=== PATIENT | female | born 1985 | race Caucasian/White ===

== ENCOUNTER 2017-04-19 08:00 | Inpatient (IN) | payer OTHER ==
--- OUTSIDE RECORDS SUMMARY | 2017-04-29 07:05 | XMS | Clinical Summary ---
:1985 Author Organization [facility] Address [address] [place] [address] Phone Care Team Providers Name Role Phone [...]
[2017-04-29] MEDS ORDERED: Heparin 5,000 UNITS/ML VIAL ONE (08:20)
[2017-04-29] MEDS ORDERED: Midazolam HCl 2 mg/2 ml Vial ONE ×2 (09:03→09:10)
[2017-04-29] MEDS ORDERED: Fentanyl 100 MCG/2 ML VIAL ONE (09:10)
[2017-04-29] MEDS ORDERED: Bupivacaine HCl 0.5%/Epinephrine 1:200,000/PF 30 ml Vial ONE (09:19)
[2017-04-29] MEDS ORDERED: Ondansetron HCl/PF 4 MG/2 ML Vial ONE (09:55)
[2017-04-29] MEDS ORDERED: Glycopyrrolate 0.2 MG/ML 5 ML SYRINGE ONE (09:55)
[2017-04-29] MEDS ORDERED: Ketorolac Tromethamine 30 MG/ML VIAL ONE (09:55)
[2017-04-29] MEDS ORDERED: Lidocaine 2% PF 10 ML AMP (For Epidural Use) ONE (09:55)
[2017-04-29] MEDS ORDERED: Propofol 200 MG/20 ML VIAL ONE (09:55)
[2017-04-29] MEDS ORDERED: Ondansetron HCl/PF 4 MG/2 ML Vial IVP PRN ×2 (11:15→11:25)
[2017-04-29] MEDS ORDERED: Meperidine HCl/PF 25 MG/ML VIAL SLOW IVP PRN (11:15)
[2017-04-29] MEDS ORDERED: Promethazine HCl 25 MG/ML VIAL IM PRN ×3 (11:15→13:43)
[2017-04-29] MEDS ORDERED: Promethazine HCl 25 MG/ML VIAL SLOW IVP PRN (11:15)
[2017-04-29] MEDS ORDERED: Promethazine HCl 25 MG/ML VIAL ONE (11:24)
[2017-04-29] MEDS ORDERED: diphenhydrAMINE HCl 50 MG/ML 1 ML VIAL IM PRN (11:25)
[2017-04-29] MEDS ORDERED: diphenhydrAMINE HCl 25 MG CAP PO PRN (11:25)
[2017-04-29] MEDS ORDERED: Naloxone HCl 0.4 mg/ml Vial IV PRN (11:25)
[2017-04-29] MEDS ORDERED: Fentanyl 5000 MCG/250 ML CADD IVPB PRN (11:25)
[2017-04-29] MEDS ORDERED: Zolpidem Tartrate 5 MG TAB PO PRN (11:25)
[2017-04-29] MEDS ORDERED: diphenhydrAMINE HCl 50 MG/ML 1 ML VIAL IVP PRN ×2 (11:25→13:43)
[2017-04-29] MEDS ORDERED: Communication Order-Pharmacy FS SCH (11:30)
[2017-04-29] MEDS ORDERED: Hydrocodone-Acetamin 15 ML UDCUP PO PRN (13:43)
[2017-04-29] MEDS ORDERED: Dextrose 50% Abboject 50 ML SYRINGE SLOW IVP PRN (13:43)
[2017-04-29] MEDS ORDERED: Dextrose 5% in Water 1,000 ML IV PRN (13:43)
[2017-04-29] MEDS: D5 1/2 NS w/20 mEq KCL 1,000 ML IV SCH ×2 (15:40→22:48)
[2017-04-29 15:46] VITALS: BMI 56.8
[2017-04-29] MEDS: Acetaminophen 1,000 MG in Premix Bag 1 BAG IVPB SCH ×2 (16:45→20:03)
--- NOTE | 2017-04-29 19:05 | OP ---
DATE OF OPERATION: 04/29/2017 PREOPERATIVE DIAGNOSES: 1. Morbid obesity with BMI of 54. 2. Hypertension. 3. Cardiomyopathy. 4. History of pulmonary embolism. POSTOPERATIVE DIAGNOSES: 1. Morbid obesity with BMI of 54. 2. Hypertension. 3. Cardiomyopathy. 4. History of pulmonary embolism. PROCEDURE: Laparoscopic sleeve gastrectomy with Meridian staple line reinforcements and 38-Yoruba bougi e. SURGEON: Mac Lopez M.D. ANESTHESIA: General. ESTIMATED BLOOD LOSS: Minimal. COMPLICATIONS: None. SPECIMEN: Stomach. FINDINGS: Normal postoperative EGD. INDICATION: The patient is a 31-year-old female who presents for gastric sleeve. She has attended our preoperative seminar and has had a preoperative education and a psychologic evaluation. She giv es consent. She understands risks, benefits and alternative procedures for weight loss. TECHNIQUE: The patient was taken to the operating room and placed supine on the table. After gener al anesthetic was obtained, the arms and legs were double strapped to bariatric table. The abdomen was prepped and draped in a sterile fashion. Left subcostal 5-mm Optiview trocar was placed in the usual fashion and high-flow pneumoperitoneum was obtained. Left and right abdominal 12-mm ports as well as a right subcostal 5 mm ports were placed under direct visualization. A 5-mm incision was ma de at the xiphoid and Nathansen was used to raise the liver off the GE junction. Short gastrics wer e taken down from mid body of stomach to the left esmer of the diaphragm. Left esmer, angle of His an d posterior fundus was completely dissected. Short gastrics were taken down to a distance of 6 cm p roximal to the pylorus. OG tube was removed and the bougie was brought in and its tip left in the a ntrum of the stomach. Multiple loads of an Golovin stapling device were used to form the sleeve. T he first was fired at a distance of 6 cm proximal to the pylorus angled up towards the incisura. Ca re was taken to avoid being too close to the incisura. Multiple loads were then fired up and the st omach was completely transected at the angle of His. The stomach was removed from left abdominal in cision and this fascial defect was closed using GraNee needle 0 Vicryl tie. There was no bleeding o n the staple lines. EGD scope was used to pass into the esophagus, stomach to the level of the duod enum without obstruction. There was no stricture at the incisura. There was no air leakage through the staple line. The EGD scope was used to decompress the stomach, pulled and removed. The Koffi sen retractor was removed under direct visualization without bleeding. All wounds are irrigated and closed. All ports were removed under camera visualization without bleeding. Vicryl was used to cl ose the fascial defect from left abdominal incision. All incisions are irrigated and closed using 4 -0 Monocryl and Dermabond. The patient was en route to recovery in stable condition. All instrumen t counts, needle counts, and lap counts were correct.
[2017-04-29] MEDS: Enoxaparin Sodium 40 MG/0.4 ML SYRINGE SC SCH (20:04)
[2017-04-30] MEDS: Ondansetron HCl/PF 4 MG/2 ML Vial IVP PRN ×2 (00:30→08:17)
[2017-04-30] MEDS: Acetaminophen 1,000 MG in Premix Bag 1 BAG IVPB SCH (02:26)
[2017-04-30] MEDS ORDERED: Iopamidol 300 61% 30 ML VIAL ONE (04:00)
[2017-04-30 06:04] LABS: #Lymphocytes 1.8 thou/uL (1.20-3.40); #Monocytes 0.6 thou/uL (0.11-0.59); #Neutrophils 6.5 thou/uL (1.40-6.50); %Basophils 0.2 % (0.0-1.0); %Eosinophils 0.3 % (0.0-10.0); %Lymphocytes 19.8 % (21.0-51.0); %Monocytes 6.8 % (0.0-10.0); Mean Platelet Volume 7.9 fL (7.4-10.4); Red Blood Cell (RBC) Count 4.66 mill/uL (4.20-5.40); White Blood Cell (WBC) Count 8.9 thou/uL (4.8-10.8)
[2017-04-30 06:22] LABS: Anion Gap 11 mmol/L (10-20); BUN (Urea Nitrogen) 4 mg/dL (7.0-18.7); Calc. Creatinine Clearance 349 mL/min (70-130); Calcium 8.8 mg/dL (7.8-10.44); Carbon Dioxide 24 mmol/L (22-29); Chloride 105 mmol/L (98-107); Estimated GFR-MDRD Greater than 90
[2017-04-30] MEDS: D5 1/2 NS w/20 mEq KCL 1,000 ML IV SCH ×3 (06:52→20:49)
--- NOTE | 2017-04-30 08:04 | DIS ---
DATE OF ADMISSION: 04/29/2017 DATE OF DISCHARGE: 04/30/2017 ADMITTING DIAGNOSIS: Morbid obesity. DISCHARGE DIAGNOSES: 1. Morbid obesity. 2. History of deep venous thrombosis/pulmonary embolism. 3. History of cardiomyopathy. PROCEDURES: Laparoscopic sleeve gastrectomy, EGD by Dr. Lopez without complication. CONDITION AT DISCHARGE: Improved. STAFF: Dr. Lopez. HOSPITAL COURSE: Patient did well postop. Swallow study on 04/30/2017 is pending. Assuming that i s normal, she will be on a liquid diet in home after lunch. Prescriptions for Lortab Elixir, Zofran , and Protonix have already been sent to her pharmacy. Given her history of PE, she has already had retrievable vena cava filter by Dr. Oliver, I also recommend 2 weeks of Lovenox. We are working on getting that set up.
[2017-04-30] MEDS: Pantoprazole 40 MG VIAL IVP SCH (08:50)
--- NOTE | 2017-04-30 09:55 | RAD ---
ESOPHAGRAM: HISTORY: Obesity. Bariatric surgery. FINDINGS: A single column contrast evaluation shows postoperative changes of the stomach, consistent with a re cent gastric sleeve procedure. There is no evidence of obstruction or leak. POS: [facility]
[2017-04-30] MEDS ORDERED: Acetaminophen 1,000 MG in Premix Bag 1 BAG IVPB PRN (12:49)
[2017-04-30] MEDS: Ketorolac Tromethamine 30 MG/ML VIAL IVP PRN ×2 (14:42→20:34)
[2017-04-30] MEDS: Enoxaparin Sodium 40 MG/0.4 ML SYRINGE SC SCH (20:34)
[2017-04-30] MEDS ORDERED: Simethicone Chewable 80 MG TAB PO PRN (22:00)
[2017-05-01] MEDS: Ketorolac Tromethamine 30 MG/ML VIAL IVP PRN (03:40)
[2017-05-01] MEDS: D5 1/2 NS w/20 mEq KCL 1,000 ML IV SCH (05:13)
--- NOTE | 2017-05-01 08:05 | DIS ---
DATE OF ADMISSION: 04/29/2017 DATE OF DISCHARGE: 05/01/2017 ADMISSION DIAGNOSES: Morbid obesity, history of pulmonary embolism. DISCHARGE DIAGNOSES: Morbid obesity, history of pulmonary embolism. PROCEDURES: Laparoscopic sleeve gastrectomy and EGD by Dr. Lopez without complication. CONDITION AT DISCHARGE: Improved. STAFF: Dr. Lopez. HOSPITAL COURSE: The patient had nausea and bloating on postop day #1, so she was kept for a second night. On postop day #2 morning, she is doing much better. She is tolerating liquids. Her pain i s gone. She will be discharged to home.
[2017-05-01 08:28] VITALS: BP 157/83; TEMP 98.4
[2017-05-01] MEDS: Pantoprazole 40 MG VIAL IVP SCH (09:01)
--- NOTE | 2017-05-02 17:47 | EKG ---
Test Reason : Blood Pressure : / mmHG Vent. Rate : 049 BPM Atrial Rate : 049 BPM P-R Int : 182 ms QRS Dur : 112 ms QT Int : 474 ms P-R-T Axes : 030 005 040 degrees QTc Int : 428 ms Marked sinus bradycardia with sinus arrhythmia Possible Inferior infarct (cited on or before 19-APR-2017) Abnormal ECG When compared with ECG of 19-APR-2017 09:09, No significant change was found Confirmed by MICA HAIDER ([id number]) on 05/02/2017 5:46:37 PM Referred By: LEONA Confirmed By:MICA HAIDER
== END 2017-05-01 11:36 | disposition home or self-care (01) | DRG 620 ==
LOC: SURG A 04-29 07:02 → SURG B 04-29 12:32
PROVIDERS: ADMIT Surgery; ATTEND Surgery
PROC: 0DB64Z3 Excision of Stomach, Percutaneous Endoscopic Approach, Vertical (ICD-10-PCS; principal; 2017-04-29)
DX: E66.01 Morbid (severe) obesity due to excess calories (principal); I42.8 Other cardiomyopathies; I10 Essential (primary) hypertension; Z68.43 Body mass index [BMI] 50.0-59.9, adult; Z86.711 Personal history of pulmonary embolism; Z86.718 Personal history of other venous thrombosis and embolism
CPT/HCPCS: 36415; 74241; 80048; 85025; 88307; 88312; 93005; 93010; 94760; C9113; J0131; J0670; J1644; J1650; J1885; J2001; J2250; J2270; J2405; J2550; J2704; J3010

== ENCOUNTER 2017-04-19 08:03 | Outpatient (CLI) | payer OTHER ==
--- OUTSIDE RECORDS SUMMARY | 2017-04-19 08:05 | XMS | Clinical Summary ---
:1985 Author Organization [facility] Address [address] [place] [address] Phone Care Team Providers Name Role Phone , Primary Care Provider Unavailable Allergies No Known Allergies Current Medications No known medications Active Problems Not on file Social History Tobacco Use Types Packs/Day Years Used Date Never Assessed Sex Assigned at Date Recorded Not on file Last Filed Vital Signs Vital Sign Reading Time Taken Blood Pressure 150/83 03/28/2013 7:26 PM CDT Pulse 100 03/28/2013 7:26 PM CDT Temperature 37.2 C (98.9 F) 03/28/2013 7:26 PM CDT Respiratory Rate 18 03/28/2013 7:26 PM CDT Oxygen Saturation 97% 03/28/2013 7:26 PM CDT Inhaled Oxygen Concentration - - Weight 136.1 kg (300 lb) 03/28/2013 4:47 PM CDT Height 175.3 cm (5' 9") 03/28/2013 4:47 PM CDT Body Mass Index 44.3 03/28/2013 4:47 PM CDT Plan of Treatment Not on file Results Not on filefrom Last 3 Months
[2017-04-19 10:10] LABS: Hematocrit 37.1 % (36.0-47.0); Mean Platelet Volume 7.6 fL (7.4-10.4); Red Blood Cell (RBC) Count 4.97 mill/uL (4.20-5.40); White Blood Cell (WBC) Count 8.7 thou/uL (4.8-10.8)
[2017-04-19 10:14] LABS: Hemoglobin A1c 5.2 % (4.0-6.0)
--- NOTE | 2017-04-19 10:21 | RAD ---
2 VIEWS OF CHEST: Date: 04/19/17 COMPARISON: None. HISTORY: Preoperative radiograph. FINDINGS: Two views of the chest show normal sized cardiomediastinal silhouette. There is no evidence of conso lidation, mass, or pleural effusion. The bones are unremarkable. IMPRESSION: No evidence of acute cardiopulmonary disease. POS: [facility]
[2017-04-19 10:29] LABS: ALT (SGPT) 22 U/L (8-55); AST (SGOT) 16 U/L (5-34); Alkaline Phosphatase 71 U/L (40-150); Anion Gap 12 mmol/L (10-20); BUN (Urea Nitrogen) 12 mg/dL (7.0-18.7); Bilirubin, Direct 0.1 mg/dL (0.1-0.3); Bilirubin, Total 0.3 mg/dL (0.2-1.2); Calc. Creatinine Clearance 0 mL/min (70-130); Calcium 8.9 mg/dL (7.8-10.44); Carbon Dioxide 25 mmol/L (22-29); Chloride 107 mmol/L (98-107); Estimated GFR-MDRD Greater than 90; Globulin 2.9 g/dL (2.4-3.5); Protein, Total 6.7 g/dL (6.0-8.3)
--- NOTE | 2017-04-20 10:01 | EKG ---
Test Reason : PREOP Blood Pressure : / mmHG Vent. Rate : 068 BPM Atrial Rate : 068 BPM P-R Int : 204 ms QRS Dur : 102 ms QT Int : 426 ms P-R-T Axes : 020 038 050 degrees QTc Int : 452 ms Normal sinus rhythm Possible Inferior infarct , age undetermined Abnormal ECG No previous ECGs available Confirmed by DAVID CARDONA ([id number]) on 04/20/2017 10:00:41 AM Referred By: LEONA Confirmed By:DAVID CARDONA
== END 2017-04-19 08:04 | disposition home or self-care (01) ==
LOC: LABBT 08:03
PROVIDERS: ATTEND Surgery
DX: Z01.818 Encounter for other preprocedural examination (principal); E66.01 Morbid (severe) obesity due to excess calories
CPT/HCPCS: 71020; 80053; 80076; 83036; 84703; 85027; 93005; 93010

== ENCOUNTER 2017-04-27 05:52 | Day surgery (SDC) | payer OTHER ==
[2017-04-26 09:59] VITALS: BMI 56.8
--- OUTSIDE RECORDS SUMMARY | 2017-04-27 05:56 | XMS | Clinical Summary ---
:1985 Author Organization [facility] Address [address] [place] [address] Phone Care Team Providers Name Role Phone [...]
[2017-04-27] MEDS ORDERED: Heparin 0 ML ONE (06:42)
[2017-04-27] MEDS ORDERED: Midazolam HCl 2 mg/2 ml Vial ONE (06:59)
--- NOTE | 2017-04-27 08:25 | OP ---
DATE OF OPERATION: 04/27/2017 PREOPERATIVE DIAGNOSIS: Morbid obesity, scheduled for obesity surgery with a high risk for deep vei n thrombosis/pulmonary embolism. POSTOPERATIVE DIAGNOSIS: Morbid obesity, scheduled for obesity surgery with a high risk for deep ve in thrombosis/pulmonary embolism. PROCEDURES: 1. Inferior vena cavogram. 2. Inferior vena cava filter placement -- OPTEASE with the hook facing caudad. TOTAL CONTRAST: 27 mL. TOTAL FLUORO TIME: 0.7 minutes. PROCEDURE IN DETAIL: After consent was obtained, the patient was brought to the molder labels and placed in supine position on the molder labels table. The groins were prepped and draped in usual sterile fash ion. Using ultrasound guidance, the femoral vein was accessed with some difficulty due to the patie nt's size. A guidewire followed by cavogram sheath was passed into the abdominal vena cava. Cavogr am sheath was positioned initially at the mid body of L3 and then moved up into the abdominal cavity to L1 to obtain adequate pictures. Hand injected vena cavogram was performed. The orifices of linda al veins were located at the mid body of L1. The vena cava was patent. There was some significant collateralization through the lumbar venous system. There was no thrombus noted. The vena cava pia sured less than 3 cm in diameter, both utilizing the caval sheath markers and manual measurements wi thin the molder labels system. The tip of the filter was positioned at the upper endplate of L2. Filter was deployed with the hook facing caudad. Sheath was removed and manual pressure held for hemostasis. The patient tolerated the procedure well and will be discharged to home later today. She understands she will need to ret urn for filter removal if she desires this after her obesity surgery.
[2017-04-27] MEDS ORDERED: Iopamidol 370 76% 50 ML VIAL FS ONE (15:53)
== END 2017-04-27 10:20 | disposition home or self-care (01) ==
LOC: CCL 05:52
PROVIDERS: ATTEND Thoracic Surgery (Cardiothoracic Vascular Surgery)
PROC: 067 Lower Veins, Dilation (ICD-10-PCS; principal; 2017-04-27)
DX: E66.01 Morbid (severe) obesity due to excess calories (principal); O90.3 Peripartum cardiomyopathy; Z68.43 Body mass index [BMI] 50.0-59.9, adult; Z79.899 Other long term (current) drug therapy; Z86.711 Personal history of pulmonary embolism; Z86.718 Personal history of other venous thrombosis and embolism; Z87.19 Personal history of other diseases of the digestive system; Z82.49 Family history of ischemic heart disease and other diseases of the circulatory system
CPT/HCPCS: 37191; 76942; C1769; J1644; J2250

== ENCOUNTER 2019-05-23 08:54 | Outpatient (CLI) | payer BC ==
--- NOTE | 2019-05-23 10:58 | ULT ---
BILATERAL CAROTID DUPLEX ULTRASOUND: HISTORY: Morbid obesity. TECHNIQUE: Glover-scale, color-flow and spectral Doppler imaging of the carotid artery systems is performe d bilaterally. FINDINGS: No plaque formation or intimal mural thickening is seen on either side. The peak systolic velocity in the right ICA measures 78 cm per second with an end diastolic velocity of 25 cm per second and a systolic ratio of 0.85. The peak systolic velocity in the left ICA measures 73 cm per second with an end diastolic velocity o f 27 cm per second and a systolic ratio of 0.67. Flow in both vertebral arteries remains antegrade. IMPRESSION: No evidence of hemodynamically significant stenosis. POS: [facility]
== END 2019-05-23 08:55 | disposition home or self-care (01) ==
LOC: BICULT 08:54
PROVIDERS: ATTEND Family Medicine
DX: E66.01 Morbid (severe) obesity due to excess calories (principal)
CPT/HCPCS: 93880

== ENCOUNTER 2019-10-10 11:02 | Day surgery (SDC) | payer BC ==
[2019-10-10] MEDS ORDERED: Ondansetron PF 4 MG/2 ML Vial SLOW IVP PRN (11:57)
[2019-10-10] MEDS ORDERED: Sodium Chloride 0.9% 1,000 ML IV SCH (12:00)
[2019-10-10] MEDS ORDERED: Multivitamins, Adult 10 ML in Sodium Chloride 0.9% 1,000 ML IV SCH (12:00)
== END 2019-10-10 14:23 | disposition home or self-care (01) ==
LOC: ONC/OP 11:02
PROVIDERS: ATTEND Surgery
DX: E86.0 Dehydration (principal)
CPT/HCPCS: 96361; 96365; 96366; 96375; J2405; J3411; J7050